=== PATIENT | female | born 1965 | race Caucasian/White ===

== ENCOUNTER 2017-02-19 11:23 | Observation (INO) | payer BC ==
[2017-02-19] MEDS ORDERED: ALBUTEROL SO4 2.5/IPRATROPIUM 0.5 INH SOL 3 ML VIAL.NEB. NEB ONE ×2 (12:20→12:42)
[2017-02-19] MEDS ORDERED: methylPREDNISolone NA SUCC 125 MG/2 ML VIAL IVPB ONE (12:21)
[2017-02-19 12:29] LABS: URINE APPEARANCE Clear; URINE BILIRUBIN Negative (NEGATIVE); URINE GLUCOSE (UA) Negative (NEGATIVE); URINE KETONE Negative (NEGATIVE); URINE NITRITE Negative (NEGATIVE); URINE UROBILINOGEN 0.2 (0.2-1.0)
--- NOTE | 2017-02-19 12:30 | PDOC ---
History of Present Illness <Chico Joseph - Last Filed: 02/19/17 15:15> - General History Source: Patient (Patient sent to ER by her PMD , Dr Sosa Menard because of exacerbation of COPD, intractable cough) - History of Present Illness Timing/Duration: 1 week, getting worse Severity: moderate <BrtethernandezhannahJoanneus France - Last Filed: 02/19/17 15:51> - General Chief Complaint: Respiratory Stated Complaint: COUGH & SOB Time Seen by Provider: 02/19/17 11:27 Past History <Chico Joseph - Last Filed: 02/19/17 15:15> - Travel Traveled outside of the country in the last 30 days: No Close contact w/someone who was outside of country & ill: No - Past Medical History Asthma: Yes (BRONCHITIS RELATED) COPD: No Diabetes: Yes GI Disorders: Yes (GERD) HTN: Yes Hypercholesterolemia: Yes Other medical history: SLEEP APNEA - Surgical History Cholecystectomy: Yes - Suicide/Smoking/Psychosocial Hx Smoking History: Never smoked Hx Alcohol Use: No Drug/Substance Use Hx: No Substance Use Type: None <BretthernandezhannahJoanneus [place] - Last Filed: 02/19/17 15:51> - Past Medical History Allergies/Adverse Reactions: Allergies Allergy/AdvReac Type Severity Reaction Status Date / Time mussels Allergy Unknown Verified 02/19/17 11:28 Penicillins Allergy Unknown Verified 02/19/17 11:28 Home Medications: Ambulatory Orders Atenolol [Tenormin] 50 mg PO DAILY 02/19/17 Atorvastatin Ca [Lipitor] 20 mg PO DAILY 02/19/17 Fluticasone Propionate [Flovent Diskus] 250 mcg IH DAILY 02/19/17 Insulin Glargine,Hum.rec.anlog [Lantus Solostar PEN (NF)] 40 units SQ HS Insulin Sliding Scale [Novolog Vial Sliding Scale -] 40 units SQ TIDAC 02/19/17 Losartan Potassium [Cozaar] 25 mg PO DAILY 02/19/17 Pantoprazole Sodium [Protonix -] 40 mg PO DAILY 02/19/17 Review of Systems - Review of Systems Able to Perform ROS?: Yes Is the patient limited Pashto proficient: Yes Constitutional: Yes: Weakness HEENTM: Yes: See HPI Respiratory: Yes: See HPI, Cough, SOB at Rest Musculoskeletal: Yes: Muscle Pain Integumentary: Yes: Symptoms Reported All Other Systems: Reviewed and Negative <Yosef Hernandez - Last Filed: 02/19/17 15:51> *Physical Exam - Vital Signs Last Vital Signs Temp Pulse Resp BP Pulse Ox 98.5 F 77 18 167/90 97 02/19/17 11:25 02/19/17 11:25 02/19/17 11:25 02/19/17 11:25 02/19/17 11:25 <Chico Joseph - Last Filed: 02/19/17 15:15> - Vital Signs Last Vital Signs Temp Pulse Resp BP Pulse Ox 98.5 F 77 18 167/90 97 02/19/17 11:25 02/19/17 11:25 02/19/17 11:25 02/19/17 11:25 02/19/17 11:25 - Physical Exam General Appearance: Yes: Nourished, Moderate Distress, Obese HEENT: positive: RADHA, Normal ENT Inspection Neck: positive: Trachea midline, Normal Thyroid, Supple Respiratory/Chest: positive: Decreased Breath Sounds, Hyperresonant Cardiovascular: positive: Regular Rate, S1, S2 Lymphatic: negative: Adenopathy Extremity: positive: Normal Capillary Refill, Pedal Edema Neurologic: positive: Fully Oriented, Alert <Yosef Hernandez - Last Filed: 02/19/17 15:51> ED Treatment Course - LABORATORY CBC & Chemistry Diagram: 02/19/17 13:05 02/19/17 13:05 - ADDITIONAL ORDERS Additional order review: Laboratory Results 02/19/17 12:15 Urine Color Yellow Urine Appearance Clear Urine pH 7.0 Ur Specific [place] 1.010 Urine Protein 1+ H Urine Glucose (UA) Negative Urine Ketones Negative Urine Blood 1+ H Urine Nitrite Negative Urine Bilirubin Negative Urine Urobilinogen 0.2 Ur Leukocyte Esterase 1+ H Urine RBC 3-5 Urine WBC 3-5 Ur Epithelial Cells Few Urine Bacteria Moderate Hyaline Casts 3-5 Urine HCG, Qual Negative 02/19/17 13:05 RBC 5.39 H MCV 84.4 MCHC 34.2 RDW 12.4 MPV 8.3 Neutrophils % 58.8 Lymphocytes % 32.3 Monocytes % 6.6 Eosinophils % 2.0 Basophils % 0.3 - Medications Given in the ED: ED Medications Discontinued Medications Generic Name Dose Route Start Last Admin Trade Name Nader PRN Reason Stop Dose Admin Albuterol/Ipratropium 1 amp 02/19/17 12:20 02/19/17 13:10 Duoneb - NEB 02/19/17 12:21 1 amp ONCE ONE Administration Methylprednisolone Sodium Succinate 125 mg 02/19/17 12:21 02/19/17 13:10 Solu-Medrol - IVPB 02/19/17 12:22 125 mg ONCE ONE Administration <Chico Joseph - Last Filed: 02/19/17 15:15> - LABORATORY CBC & Chemistry Diagram: 02/19/17 13:05 02/19/17 13:05 <Yosef Hernandez - Last Filed: 02/19/17 15:51> Medical Decision Making - Medical Decision Making 02/19/17 15:[address] Menard @15:15pm. Second page, first page done by RN. Awaiting call back. <Chico Joseph - Last Filed: 02/19/17 15:15> - Medical Decision Making 02/19/17 15:[address] Menard <Yosef Hernandez S - Last Filed: 02/19/17 15:51> *DC/Admit/Observation/Transfer <Chico Joseph - Last Filed: 02/19/17 15:15> - Discharge Dispostion Admit: Yes <Yosef Hernandez S - Last Filed: 02/19/17 15:51> Diagnosis at time of Disposition: COPD exacerbation Diabetes Qualifiers: Diabetes mellitus type: type 2 Diabetes mellitus complication status: with unspecified complications - Discharge Dispostion Condition at time of disposition: Poor - Referrals Referrals: Sosa Menard MD [Primary Care Provider] - - Patient Instructions - Post Discharge Activity
[2017-02-19 12:31] LABS: URINE BACTERIA MODERATE /hpf (NEGATIVE); URINE BLOOD 1+ (NEGATIVE); URINE COLOR YELLOW; URINE LEUK ESTERASE 1+ (NEGATIVE); URINE PROTEIN 1+ (NEGATIVE)
[2017-02-19] MEDS ORDERED: methylPREDNISolone NA SUCC 125 MG/2 ML VIAL ONE (12:43)
[2017-02-19 13:18] LABS: BASOPHIL 0.3 % (0-2.0); MCH 28.9 pg (25.7-33.7); MCHC 34.2 g/dl (32.0-36.0); MEAN CELL VOLUME 84.4 fl (80-96); NEUTROPHILS 58.8 % (42.8-82.8); RDW 12.4 % (11.6-15.6); WHITE BLOOD COUNT 9.3 K/mm3 (4.0-10.8)
[2017-02-19 13:25] LABS: MEAN PLT VOLUME 8.3 fl (7.5-11.1); PLATELET COUNT 255 K/MM3 (134-434)
[2017-02-19 15:50] LABS: ALBUMIN 3.8 g/dl (3.4-5.0); ANION GAP 10 (8-16); BILIRUBIN,TOTAL 0.6 mg/dL (0.2-1.0); CALCIUM 9.7 mg/dL (8.5-10.1); CO2 31 mmol/L (21-32); CREATININE 0.7 mg/dL (0.55-1.02); GLUCOSE,RANDOM 104 mg/dL (74-106); SGOT/AST 49 U/L (15-37); SGPT/ALT 187 U/L (12-78); TOT PROT 7.2 g/dl (6.4-8.2)
[2017-02-19 15:51] LABS: ALK PHOS 246 U/L (45-117)
[2017-02-19 19:01] VITALS: BMI 44.6
--- NOTE | 2017-02-19 20:59 | HP ---
Admitting History and Physical - Admission Chief Complaint: Cough History of Present Illness: This is a 52 y/o woman with a PMHx of: Asthma, HTN, DM, GERD, Sleep Apnea (no CPAP). Who was sent in by her [employer] for admission Asthma Exacerbation, Intractable Cough. Patient reports having a cough since [place], which was productive up until last week. Patient reports recent admission x2 for Asthma Exacerbation d/cd 02/07. Patient denies fever, chills, SOB, CP, AP, N/V/D, constipation. Patient denies exposure to pets/animal dander. History Source: Patient Limitations to Obtaining History: No Limitations - Past Medical History Cardiovascular: Yes: HTN Pulmonary: Yes: Asthma, Bronchitis, Sleep Apnea (no CPAP) Gastrointestinal: Yes: GERD ...LMP Comment: 2 YEARS AGO ...: No Endocrine: Yes: Diabetes Mellitus - Past Surgical History Past Surgical History: Yes: Cholecystectomy, Joint Replacement (right), Laminectomy (cervical) - Advance Directives Advance Directives: Yes: Health Care Proxy - Smoking History Smoking history: Never smoked Have you smoked in the past 12 months: No - Alcohol/Substance Use Hx Alcohol Use: No History of Substance Use: reports: None - Social History Usual Living Arrangement: Yes: With Spouse ADL: Independent 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 History of Recent Travel: No Home Medications - Allergies Allergies/Adverse Reactions: Allergies Allergy/AdvReac Type Severity Reaction Status Date / Time mussels Allergy Unknown Verified 02/19/17 11:28 Penicillins Allergy Unknown Verified 02/19/17 11:28 - Home Medications Home Medications: Ambulatory Orders Atenolol [Tenormin] 50 mg PO DAILY 02/19/17 Atorvastatin Ca [Lipitor] 20 mg PO DAILY 02/19/17 Fluticasone Propionate [Flovent Diskus] 250 mcg IH DAILY 02/19/17 Insulin Glargine,Hum.rec.anlog [Lantus Solostar PEN (NF)] 40 units SQ HS Insulin Sliding Scale [Novolog Vial Sliding Scale -] 40 units SQ TIDAC 02/19/17 Losartan Potassium [Cozaar] 25 mg PO DAILY 02/19/17 Pantoprazole Sodium [Protonix -] 40 mg PO DAILY 02/19/17 Family Disease History - Family Disease History Family Disease History: Diabetes: Grandparent, Heart Disease: Father (HTN), Mother (HTN) Review of Systems - Review of Systems Constitutional: reports: No Symptoms HENT: reports: No Symptoms Neck: reports: No Symptoms Cardiovascular: reports: No Symptoms Respiratory: reports: Cough, Wheezing Gastrointestinal: reports: No Symptoms Genitourinary: reports: No Symptoms Breasts: reports: No Symptoms Reported Musculoskeletal: reports: No Symptoms Integumentary: reports: No Symptoms Neurological: reports: No Symptoms Endocrine: reports: No Symptoms Hematology/Lymphatic: reports: No Symptoms Psychiatric: reports: No Symptoms Physical Examination Vital Signs: Vital Signs Temperature 97.5 F L 02/19/17 18:43 Pulse Rate 92 H 02/19/17 18:43 Respiratory Rate 20 02/19/17 20:09 Blood Pressure 189/97 02/19/17 18:43 O2 Sat by Pulse Oximetry (%) 97 02/19/17 11:25 Constitutional: Yes: Well Nourished, No Distress, Obese Eyes: Yes: WNL, Conjunctiva Clear, EOM Intact, PERRL HENT: Yes: WNL, Atraumatic, Normocephalic Neck: Yes: WNL, Supple, Trachea Midline Cardiovascular: Yes: WNL, Regular Rate and Rhythm, S1, S2 Respiratory: Yes: Cough, Diminished Gastrointestinal: Yes: Normal Bowel Sounds, Soft, Abdomen, Obese Renal/: Yes: WNL Breast(s): Yes: WNL Musculoskeletal: Yes: WNL Extremities: Yes: WNL Edema: Yes Edema: LLE: 2+, RLE: 2+ Peripheral Pulses WNL: Yes Integumentary: Yes: WNL Neurological: Yes: WNL, Alert, Oriented, Cran Nerves II-XII Intact ...Motor Strength: WNL Psychiatric: Yes: WNL Labs: CBC, BMP 02/19/17 13:05 02/19/17 13:05 Intake & Output 02/17/17 02/18/17 02/19/17 02/20/17 23:59 23:59 23:59 23:59 Intake Total 400 Balance 400 Weight 110.677 kg Imaging - Results Chest X-ray: Report Reviewed EKG: Image Reviewed Problem List - Problems (1) Asthma exacerbation Code(s): J45.901 - UNSPECIFIED ASTHMA WITH (ACUTE) EXACERBATION (2) Bronchitis Code(s): J40 - BRONCHITIS, NOT SPECIFIED ACUTE OR CHRONIC (3) Cough present for greater than 3 weeks Code(s): R05 - COUGH (4) Severe obesity (BMI >= 40) Code(s): E66.01 - MORBID (SEVERE) OBESITY DUE TO EXCESS CALORIES (5) HTN (hypertension) Code(s): I10 - ESSENTIAL (PRIMARY) HYPERTENSION (6) Elevated LFTs Code(s): R79.89 - OTHER SPECIFIED ABNORMAL FINDINGS OF BLOOD CHEMISTRY (7) GERD (gastroesophageal reflux disease) Code(s): K21.9 - GASTRO-ESOPHAGEAL REFLUX DISEASE WITHOUT ESOPHAGITIS (8) DVT prophylaxis Code(s): [id number] - Assessment/Plan This is a 52 y/o woman with a PMHx of: Asthma, HTN, DM, GERD, Sleep Apnea. Placed on Observation with Asthma Exacerbation, Cough. Plan: 1. Asthma Exacerbation - Duonebs - Solumederol with taper - Peakflow - Appreciate Pulm Consult - Chest Xray reviewed- neg infiltrate, effusion, vascular congestion - Monitor vitals 2. Cough - Likely due to upper airway syndrome vs gastroesphogeal reflux vs chronic bronchitis - PPI - Guaifenesin DM prn - Duonebs 3. Diabetes Mellitus - Not controlled possibly due to recent steroid use - BGMs - ISS - Continue Levemir - HgBA1C 8.9 - f/u with endocrinology outpatient for further management 4. Severe Obesity - Sub Optimal - Low Calorie Diet - Consider RD Consult 5. Hypertension - Not Controlled - Continue home med - Monitor renal function 6. Transaminitis - 49/187/246 - Will avoid Hepotoxic Drugs - Continue to monitor and treat accordingly 7. GERD - Continue home med 8. Sleep Apnea - no CPAP use 9. FEN - PO Fluids - Replete lytes prn - Diabetic, Low Na, Low Cholesterol Diet 10. DVT Prophylaxis - OOB - SCDs Code Status: Full Code Dispo: Observation Visit type - Emergency Visit Emergency Visit: Yes ED Registration Date: 02/19/17 Care time: The patient presented to the Emergency Department on the above date and was hospitalized for further evaluation of their emergent condition. - New Patient This patient is new to me today: Yes Date on this admission: 02/19/17 - Critical Care Critical Care patient: No
[2017-02-19] MEDS ORDERED: ALBUTEROL SO4 2.5/IPRATROPIUM 0.5 INH SOL 3 ML VIAL.NEB. NEB PRN (21:09)
[2017-02-19] MEDS ORDERED: INSULIN (NOVOLOG) ASPART 100 UNITS/ML 10ML VIAL ONE (23:33)
[2017-02-20] MEDS ORDERED: guaiFENesin/D-METHORPHAN HB 10 ML UNIT-DOSE CUPS PO PRN (00:57)
[2017-02-20] MEDS: INSULIN SLIDING SCALE (NOVOLOG) 1 VIAL SQ SCH ×3 (06:48→21:56)
[2017-02-20 09:22] LABS: BASOPHIL 0.1 % (0-2.0); MCH 29.6 pg (25.7-33.7); MCHC 34.8 g/dl (32.0-36.0); MEAN CELL VOLUME 85.1 fl (80-96); MEAN PLT VOLUME 8.8 fl (7.5-11.1); NEUTROPHILS 76.6 % (42.8-82.8); PLATELET COUNT 241 K/MM3 (134-434); RDW 12.1 % (11.6-15.6); WHITE BLOOD COUNT 8.8 K/mm3 (4.0-10.8)
[2017-02-20] MEDS: PANTOPRAZOLE 40 MG TABLET (FP) PO SCH (09:25)
[2017-02-20] MEDS: ATENOLOL 50 MG TABLET (FP) PO SCH (09:25)
[2017-02-20] MEDS: LOSARTAN POTASSIUM 25 MG TABLET PO SCH (09:25)
[2017-02-20 09:44] LABS: ANION GAP 11 (8-16); CALCIUM 9.4 mg/dl (8.4-10.2); CO2 24 mmol/L (22-28); CREATININE 0.7 mg/dl (0.6-1.3); GLUCOSE,RANDOM 290 mg/dl (74-106)
--- NOTE | 2017-02-20 10:17 | PN ---
Physical Exam: SUBJECTIVE: Patient seen and examined, sitting in bed, talking on cell phone denies any chest pain or shortness of breath, reports persistent cough. OBJECTIVE: 52 y/o woman with a PMHx of: Asthma, HTN, DM, GERD, Sleep Apnea (no CPAP). admitted for emergent condition. Vital Signs Period Temp Pulse Resp BP Sys/Dooley Pulse Ox Last 24 Hr 97.5 F-98.5 F 77-102 18-20 144-189/73-97 94-97 GENERAL: obese, patient is awake, alert, and fully oriented, in no acute distress. HEAD: Normal with no signs of trauma. EYES: PERRL, extraocular movements intact, sclera anicteric, conjunctiva clear. No ptosis. ENT: Ears normal, nares patent, oropharynx clear without exudates, moist mucous membranes. post nasal drip noted NECK: Trachea midline, full range of motion, supple. LUNGS: Breath sounds equal, clear to auscultation bilaterally, no wheezes, no crackles, no accessory muscle use. speaking in full sentences HEART: Regular rate and rhythm, S1, S2 without murmur, rub or gallop. ABDOMEN: Soft, nontender, nondistended, normoactive bowel sounds, no guarding, no rebound, no hepatosplenomegaly, no masses. EXTREMITIES: 2+ pulses, warm, well-perfused, no edema. NEUROLOGICAL: Cranial nerves II through XII grossly intact. Normal speech, gait not observed. PSYCH: Normal mood, normal affect. SKIN: Warm, dry, normal turgor, no rashes or lesions noted Laboratory Results - last 24 hr 02/19/17 02/19/17 02/19/17 12:15 13:05 13:05 WBC 9.3 RBC 5.39 H Hgb 15.6 H Hct 45.4 H MCV 84.4 MCH 28.9 MCHC 34.2 RDW 12.4 Plt Count 255 MPV 8.3 Neutrophils % 58.8 Lymphocytes % 32.3 Monocytes % 6.6 Eosinophils % 2.0 Basophils % 0.3 Sodium 141 Potassium 3.9 Chloride 100 Carbon Dioxide 31 Anion Gap 10 BUN 9 Creatinine 0.7 Creat Clearance w eGFR > 60 POC Glucometer Random Glucose 104 Hemoglobin A1c % Calcium 9.7 Total Bilirubin 0.6 AST 49 H ALT 187 H Alkaline Phosphatase 246 H Total Protein 7.2 Albumin 3.8 Urine Color Yellow Urine Appearance Clear Urine pH 7.0 Ur Specific [place] 1.010 Urine Protein 1+ H Urine Glucose (UA) Negative Urine Ketones Negative Urine Blood 1+ H Urine Nitrite Negative Urine Bilirubin Negative Urine Urobilinogen 0.2 Ur Leukocyte Esterase 1+ H Urine RBC 3-5 Urine WBC 3-5 Ur Epithelial Cells Few Urine Bacteria Moderate Hyaline Casts 3-5 Urine HCG, Qual Negative 02/19/17 02/19/17 02/20/17 13:05 21:37 06:00 WBC RBC Hgb Hct MCV MCH MCHC RDW Plt Count MPV Neutrophils % Lymphocytes % Monocytes % Eosinophils % Basophils % Sodium Potassium Chloride Carbon Dioxide Anion Gap BUN Creatinine Creat Clearance w eGFR POC Glucometer 391 417 Random Glucose Hemoglobin A1c % 8.9 H Calcium Total Bilirubin AST ALT Alkaline Phosphatase Total Protein Albumin Urine Color Urine Appearance Urine pH Ur Specific [place] Urine Protein Urine Glucose (UA) Urine Ketones Urine Blood Urine Nitrite Urine Bilirubin Urine Urobilinogen Ur Leukocyte Esterase Urine RBC Urine WBC Ur Epithelial Cells Urine Bacteria Hyaline Casts Urine HCG, Qual 02/20/17 02/20/17 07:30 07:30 WBC 8.8 RBC 5.00 Hgb 14.8 Hct 42.6 MCV 85.1 MCH 29.6 MCHC 34.8 RDW 12.1 Plt Count 241 MPV 8.8 Neutrophils % 76.6 D Lymphocytes % 17.6 D Monocytes % 5.7 Eosinophils % 0.0 D Basophils % 0.1 Sodium 135 L Potassium 3.9 Chloride 100 Carbon Dioxide 24 Anion Gap 11 BUN 15 Creatinine 0.7 Creat Clearance w eGFR POC Glucometer Random Glucose 290 H Hemoglobin A1c % Calcium 9.4 Total Bilirubin AST ALT Alkaline Phosphatase Total Protein Albumin Urine Color Urine Appearance Urine pH Ur Specific [place] Urine Protein Urine Glucose (UA) Urine Ketones Urine Blood Urine Nitrite Urine Bilirubin Urine Urobilinogen Ur Leukocyte Esterase Urine RBC Urine WBC Ur Epithelial Cells Urine Bacteria Hyaline Casts Urine HCG, Qual Active Medications Generic Name Dose Route Start Last Admin Trade Name Freq PRN Reason Stop Dose Admin Albuterol/Ipratropium 1 amp 02/19/17 21:09 Duoneb - NEB Q4H PRN SHORTNESS OF BREATH Atenolol 50 mg 02/20/17 10:00 02/20/17 09:25 Tenormin - PO 50 mg DAILY MYLA Administration Atorvastatin Calcium 20 mg 02/20/17 22:00 Lipitor - PO HS MYLA Azithromycin 250 mg 02/21/17 10:00 Zithromax - PO 02/24/17 10:01 DAILY MYAL Budesonide/Formoterol Fumarate 2 puff 02/20/17 12:00 02/20/17 12:00 Symbicort 160/4.5mcg - IH 2 inh BID MYLA Administration Fluticasone Propionate 2 spray 02/20/17 13:15 Flonase - NS DAILY MYLA Guaifenesin 10 ml 02/20/17 00:57 Robitussin Dm - PO Q6H PRN COUGH Insulin Aspart 1 vial 02/20/17 07:00 02/20/17 11:47 Novolog Vial Sliding Scale - SQ 10 units ACHS MYLA Administration Protocol Insulin Detemir 40 units 02/20/17 22:00 Levemir Vial SQ HS MYLA Loratadine 10 mg 02/20/17 13:15 Claritin - PO DAILY MYLA Losartan Potassium 25 mg 02/20/17 10:00 02/20/17 09:25 Cozaar - PO 25 mg DAILY MYLA Administration Methylprednisolone Sodium Succinate 40 mg 02/20/17 11:45 02/20/17 11:52 Solu-Medrol - IVPUSH 40 mg Q6H-IV MYLA Administration Pantoprazole Sodium 40 mg 02/20/17 10:00 02/20/17 09:25 Protonix - PO 40 mg DAILY MYLA Administration IMAGING chest xray: no acute pathology ASSESSMENT/PLAN: 1. 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 bronchospasm - Likely due to upper airway syndrome vs gastroesphogeal reflux vs postnasal drip - continue ppi, start flonase and claritin 2. endo iddm (uncontrolled) - continue home dose levermir, fingersticks achs 3. cardiovascular Hypertension - continue atenolol and cozaar - b/p at goal 4. gi transanimiits - benign abd exam, close monitoring, lipid profile ordere GERD - Continue ppi FEN - PO Fluids - Replete lytes prn - Diabetic, Low Na, Low Cholesterol Diet DVT Prophylaxis - OOB - SCDs Code Status: Full Code Dispo: Observation Visit type - Emergency Visit Emergency Visit: Yes ED Registration Date: 02/19/17 Care time: The patient presented to the Emergency Department on the above date and was hospitalized for further evaluation of their emergent condition. - New Patient This patient is new to me today: No - Critical Care Critical Care patient: No - Discharge Referral Referred to [facility] No
--- NOTE | 2017-02-20 11:31 | PN ---
Progress Note (short form) - Note Progress Note: PULMONARY CONSULTATION DICTATED 02/20/17 IMP ? ASTHMA EXACERBATION COUGH ? ASTHMA,?LARYNGEAL/PHARYNGEAL REFLUX R/O INFECTIOUS ?PERTUSSIS OSAS IDDM HTN MORBID OBESITY ELEVATED LFTS PLAN STEROIDS INHALED BRONCHODILATORS ABX PROTONIX CHEST CT MONITOR LFTS DR MCGINNIS Problem List - Problems (1) Elevated LFTs Code(s): R79.89 - OTHER SPECIFIED ABNORMAL FINDINGS OF BLOOD CHEMISTRY (2) Asthma exacerbation Code(s): J45.901 - UNSPECIFIED ASTHMA WITH (ACUTE) EXACERBATION (3) Bronchitis Code(s): J40 - BRONCHITIS, NOT SPECIFIED ACUTE OR CHRONIC (4) Diabetes Code(s): E11.9 - TYPE 2 DIABETES MELLITUS WITHOUT COMPLICATIONS Qualifiers: Diabetes mellitus type: type 2 Diabetes mellitus complication status: with unspecified complications (5) GERD (gastroesophageal reflux disease) Code(s): K21.9 - GASTRO-ESOPHAGEAL REFLUX DISEASE WITHOUT ESOPHAGITIS (6) HTN (hypertension) Code(s): I10 - ESSENTIAL (PRIMARY) HYPERTENSION (7) Morbid obesity Code(s): E66.01 - MORBID (SEVERE) OBESITY DUE TO EXCESS CALORIES
[2017-02-20] MEDS ORDERED: PT OWN MED DRAWER 7, Y5N ONE ×2 (11:50→14:05)
[2017-02-20] MEDS: BUDESONIDE/FORMETEROL FUMARATE 160/4.5 mcg INHALER IH SCH ×3 (11:52→21:49)
[2017-02-20] MEDS: methylPREDNISolone NA SUCC 40 MG/1 ML VIAL IVPUSH SCH ×3 (11:52→21:06)
[2017-02-20] MEDS ORDERED: AZITHROMYCIN 250 MG TABLET PO ONE (12:00)
--- NOTE | 2017-02-20 12:45 | EKG ---
Test Reason : Blood Pressure : / mmHG Vent. Rate : 083 BPM Atrial Rate : 083 BPM P-R Int : 148 ms QRS Dur : 082 ms QT Int : 390 ms P-R-T Axes : 029 -22 026 degrees QTc Int : 458 ms SINUS RHYTHM POOR R WAVE PROGRESSION NONSPECIFIC T WAVE ABNORMALITY NO PREVIOUS ECGS AVAILABLE Confirmed by ROXANNE BELTRAN MD ([id number]) on 02/20/2017 12:45:30 PM Referred By: MD SABILLON Confirmed By:ROXANNE BELTRAN MD
[2017-02-20] MEDS ORDERED: REFRIGERATED ANITBIOTICS ONE ×3 (14:55→21:34)
[2017-02-20] MEDS: LORATADINE 10 MG TABLET PO SCH (14:59)
[2017-02-20] MEDS: FLUTICASONE PROP 0.05% 16 GM NASAL SPRAY NS SCH (14:59)
[2017-02-20] MEDS ORDERED: INSULIN DETEMIR 100 UNITS/ML MDV SQ SCH (22:00)
[2017-02-20] MEDS ORDERED: ATORVASTATIN CA 20 MG TABLET (FP) PO SCH (22:00)
[2017-02-21] MEDS: methylPREDNISolone NA SUCC 40 MG/1 ML VIAL IVPUSH SCH (03:18)
[2017-02-21] MEDS ORDERED: REFRIGERATED ANITBIOTICS ONE ×4 (06:13→15:12)
--- NOTE | 2017-02-21 07:44 | PN ---
Progress Note, Physician History of Present Illness: PULMONARY ALERT,LESS DYSPNEIC,LESS COUGH - Current Medication List Current Medications: Active Medications Albuterol/Ipratropium (Duoneb -) 1 amp NEB Q4H PRN PRN Reason: SHORTNESS OF BREATH Atenolol (Tenormin -) 50 mg PO DAILY [facility] Last Admin: 02/20/17 09:25 Dose: 50 mg Atorvastatin Calcium (Lipitor -) 20 mg PO HS [facility] Last Admin: 02/20/17 21:49 Dose: 20 mg Azithromycin (Zithromax -) 250 mg PO DAILY [facility] Stop: 02/24/17 10:01 Budesonide/Formoterol Fumarate (Symbicort 160/4.5mcg -) 2 puff IH BID [facility] Last Admin: 02/20/17 21:49 Dose: 2 inh Fluticasone Propionate (Flonase -) 2 spray NS DAILY [facility] Last Admin: 02/20/17 14:59 Dose: 2 spray Guaifenesin (Robitussin Dm -) 10 ml PO Q6H PRN PRN Reason: COUGH Insulin Aspart (Novolog Vial Sliding Scale -) 1 vial SQ ACHS [facility] PRN Reason: Protocol Last Admin: 02/20/17 21:56 Dose: 10 units Insulin Detemir (Levemir Vial) 40 units SQ HS [facility] Last Admin: 02/20/17 22:50 Dose: 40 units Loratadine (Claritin -) 10 mg PO DAILY [facility] Last Admin: 02/20/17 14:59 Dose: 10 mg Losartan Potassium (Cozaar -) 25 mg PO DAILY [facility] Last Admin: 02/20/17 09:25 Dose: 25 mg Methylprednisolone Sodium Succinate (Solu-Medrol -) 40 mg IVPUSH Q6H-IV [facility] Last Admin: 02/21/17 03:18 Dose: 40 mg Pantoprazole Sodium (Protonix -) 40 mg PO DAILY [facility] Last Admin: 02/20/17 09:25 Dose: 40 mg - Objective Vital Signs: Vital Signs Temperature 97.7 F 02/21/17 06:00 Pulse Rate 72 02/21/17 06:00 Respiratory Rate 19 02/21/17 06:00 Blood Pressure 132/72 02/21/17 06:00 O2 Sat by Pulse Oximetry (%) 96 02/20/17 22:13 Constitutional: Yes: Calm, Obese Eyes: Yes: WNL HENT: Yes: WNL Neck: Yes: WNL Cardiovascular: Yes: Regular Rate and Rhythm, S1, S2 Respiratory: Yes: Diminished Gastrointestinal: Yes: Normal Bowel Sounds, Soft Extremities: Yes: WNL Edema: No Problem List - Problems (1) Elevated LFTs Code(s): R79.89 - OTHER SPECIFIED ABNORMAL FINDINGS OF BLOOD CHEMISTRY (2) Asthma exacerbation Code(s): J45.901 - UNSPECIFIED ASTHMA WITH (ACUTE) EXACERBATION (3) Bronchitis Code(s): J40 - BRONCHITIS, NOT SPECIFIED ACUTE OR CHRONIC (4) Diabetes Code(s): E11.9 - TYPE 2 DIABETES MELLITUS WITHOUT COMPLICATIONS Qualifiers: Diabetes mellitus type: type 2 Diabetes mellitus complication status: with unspecified complications (5) GERD (gastroesophageal reflux disease) Code(s): K21.9 - GASTRO-ESOPHAGEAL REFLUX DISEASE WITHOUT ESOPHAGITIS (6) HTN (hypertension) Code(s): I10 - ESSENTIAL (PRIMARY) HYPERTENSION (7) Morbid obesity Code(s): E66.01 - MORBID (SEVERE) OBESITY DUE TO EXCESS CALORIES Assessment/Plan IMP ? ASTHMA EXACERBATION COUGH ? ASTHMA,?LARYNGEAL/PHARYNGEAL REFLUX R/O INFECTIOUS ?PERTUSSIS OSAS IDDM HTN MORBID OBESITY ELEVATED LFTS PLAN STEROIDS INHALED BRONCHODILATORS ABX PROTONIX MONITOR LFTS CARDIOLOGY RICHARD MCGINNIS Problem List - Problems (1) Elevated LFTs Code(s): R79.89 - OTHER SPECIFIED ABNORMAL FINDINGS OF BLOOD CHEMISTRY (2) Asthma exacerbation Code(s): J45.901 - UNSPECIFIED ASTHMA WITH (ACUTE) EXACERBATION (3) Bronchitis Code(s): J40 - BRONCHITIS, NOT SPECIFIED ACUTE OR CHRONIC (4) Diabetes Code(s): E11.9 - TYPE 2 DIABETES MELLITUS WITHOUT COMPLICATIONS Qualifiers: Diabetes mellitus type: type 2 Diabetes mellitus complication status: with unspecified complications (5) GERD (gastroesophageal reflux disease) Code(s): K21.9 - GASTRO-ESOPHAGEAL REFLUX DISEASE WITHOUT ESOPHAGITIS (6) HTN (hypertension) Code(s): I10 - ESSENTIAL (PRIMARY) HYPERTENSION (7) Morbid obesity Code(s): E66.01 - MORBID (SEVERE) OBESITY DUE TO EXCESS CALORIES
[2017-02-21 08:38] LABS: ALBUMIN 3.9 g/dl (3.5-5.0); ALK PHOS 181 U/L (32-92); ANION GAP 12 (8-16); BILIRUBIN,TOTAL 0.6 mg/dl (0.2-1.0); CO2 25 mmol/L (22-28); CREATININE 0.8 mg/dl (0.6-1.3); MAGNESIUM 1.9 mg/dL (1.8-2.4); PHOSPHOROUS 4.2 mg/dl (2.5-4.6); SGOT/AST 35 U/L (10-42); SGPT/ALT 104 U/L (10-40); TOT PROT 7.2 g/dl (6.4-8.3)
[2017-02-21 08:44] LABS: GLUCOSE,RANDOM 308 mg/dl (74-106)
[2017-02-21 09:01] LABS: BASOPHIL 0.1 % (0-2.0); EOSINOPHIL 0.1 % (0-4.5); MCHC 34.9 g/dl (32.0-36.0); MEAN PLT VOLUME 9.1 fl (7.5-11.1); NEUTROPHILS 85.6 % (42.8-82.8); PLATELET COUNT 254 K/MM3 (134-434); RDW 12.3 % (11.6-15.6); WHITE BLOOD COUNT 10.9 K/mm3 (4.0-10.8)
[2017-02-21] MEDS ORDERED: PT OWN MED DRAWER 7, Y5N ONE (09:07)
[2017-02-21] MEDS: BUDESONIDE/FORMETEROL FUMARATE 160/4.5 mcg INHALER IH SCH (09:15)
[2017-02-21] MEDS: LOSARTAN POTASSIUM 25 MG TABLET PO SCH (09:15)
[2017-02-21] MEDS: PANTOPRAZOLE 40 MG TABLET (FP) PO SCH (09:15)
[2017-02-21] MEDS: LORATADINE 10 MG TABLET PO SCH (09:15)
[2017-02-21] MEDS: ATENOLOL 50 MG TABLET (FP) PO SCH (09:15)
[2017-02-21 09:18] LABS: CHOLESTEROL 224 mg/dl
[2017-02-21] MEDS: FLUTICASONE PROP 0.05% 16 GM NASAL SPRAY NS SCH (09:52)
[2017-02-21] MEDS ORDERED: AZITHROMYCIN 250 MG TABLET PO SCH ×2 (10:00)
[2017-02-21] MEDS ORDERED: methylPREDNISolone NA SUCC 40 MG/1 ML VIAL IVPUSH SCH (10:00)
--- NOTE | 2017-02-21 11:06 | CONS ---
PULMONARY CONSULTATION DATE OF CONSULTATION: 02/20/2017 REFERRING PHYSICIAN: Selena Gray NP HISTORY OF PRESENT ILLNESS: The patient is a 52-year-old white female with past medical history of asthma; hypertension; GERD; sleep apnea, not on CPAP; diabetes, who was admitted to [facility] secondary to asthma exacerbation and intractable cough. Patient states she has had a cough since . She had 2 admissions at [facility] for exacerbation, most recently February 07; from which, she was discharged. She apparently was discharged home on steroids. She went to see her regional office coordinator yesterday with the above symptoms, again advised to go to the hospital for further therapy. She states that she had a fever a couple of days. Denies any chest pains or palpitations. She also has a history of GERD. She went to an ENT physician 2-3 days ago. She stated she had a lot of inflammation in the back of her airway and evidence of GERD. Patient denies any chest pains, palpitations. Denies nausea, vomiting, and diaphoresis. She is a nonsmoker. There is no history of occupational exposure to chemicals or fumes. She has never been intubated. There is no history of recent travel. She states that when she was younger, she also went for allergy shots. PAST MEDICAL HISTORY: Again includes asthma, hypertension, GERD, diabetes, sleep apnea. REVIEW OF SYSTEMS: Positive for cough, positive shortness of breath. Positive fever. No chest pain. No palpitations. No hemoptysis. No abdominal pain. No weight loss. No night sweats. MEDICATIONS PRIOR TO ADMISSION: Include Tenormin, Lipitor, Flovent, insulin, Cozaar, and Protonix. PHYSICAL EXAMINATION: General: The patient is an obese female, well awake, alert, in no acute distress. Vital Signs: She is currently afebrile. Blood pressure is 144/80. Respiratory rate is 20. O2 saturation is 94% on room air. HEENT: Normocephalic, atraumatic. Neck: Supple. Heart: Regular. S1, S2. Chest: Clear. Abdomen: Soft. Bowel sounds are positive. Extremities: No signs of edema. DIAGNOSTIC DATA: Chest x-ray: No acute infiltrates and effusions. Laboratory Data: WBC is 8.8, hemoglobin 14.8, hematocrit 42.6, with a platelet count of 241,000. Sodium is 135, glucose is 290. ALT is 187, alkaline phosphatase is 246, and AST is 49. IMPRESSION: 1. Cough, dyspnea, asthma. 2. Cough secondary to laryngopharyngeal reflux. 3. Obstructive sleep apnea. 4. Elevated transaminases; etiology to be determined. 5. Morbid obesity. PLAN: Antibiotic therapy, IV steroids, inhaled steroids, continue proton pump inhibitors, PFTs as an outpatient, also monitor LFTs, also obtain CT scan of the chest to rule out underlying bronchiectasis, also antibiotics to cover possible Bordetella pertussis. INGA MCGINNIS M.D. [id number]
[2017-02-21] MEDS: INSULIN SLIDING SCALE (NOVOLOG) 1 VIAL SQ SCH (12:04)
--- NOTE | 2017-02-21 13:09 | DS ---
Physical Exam: SUBJECTIVE: Patient seen and examined, reports feeling better, less coughing, denies any chest pain or shortness of breath. OBJECTIVE:This is a 52 y/o woman with a PMHx of: Asthma, HTN, DM, GERD, Sleep Apnea (no CPAP). 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 Patient reports having a cough since Halloween , which was productive up until last week. Patient reports recent admission x2 for Asthma Exacerbation d/cd 02/07. Patient denies fever, chills, SOB, CP, AP, N/ V/D, constipation. Patient denies exposure to pets/animal dander. Vital Signs Period Temp Pulse Resp BP Sys/Dooley Pulse Ox Last 24 Hr 97.7 F-98.0 F 72-89 19-20 132-150/72-75 96-96 PHYSICAL EXAM GENERAL: obese, patient is awake, alert, and fully oriented, in no acute distress. HEAD: Normal with no signs of trauma. EYES: PERRL, extraocular movements intact, sclera anicteric, conjunctiva clear. No ptosis. ENT: Ears normal, nares patent, oropharynx clear without exudates, moist mucous membranes. post nasal drip noted NECK: Trachea midline, full range of motion, supple. LUNGS: Breath sounds equal, clear to auscultation bilaterally, no wheezes, no crackles, no accessory muscle use. speaking in full sentences HEART: Regular rate and rhythm, S1, S2 without murmur, rub or gallop. ABDOMEN: Soft, nontender, nondistended, normoactive bowel sounds, no guarding, no rebound, no hepatosplenomegaly, no masses. EXTREMITIES: 2+ pulses, warm, well-perfused, no edema. NEUROLOGICAL: Cranial nerves II through XII grossly intact. Normal speech, gait not observed. PSYCH: Normal mood, normal affect. SKIN: Warm, dry, normal turgor, no rashes or lesions noted LABS Laboratory Results - last 24 hr 02/20/17 02/20/17 02/20/17 14:50 16:07 20:28 WBC RBC Hgb Hct MCV MCH MCHC RDW Plt Count MPV Neutrophils % Lymphocytes % Monocytes % Eosinophils % Basophils % Sodium Potassium Chloride Carbon Dioxide Anion Gap BUN Creatinine Creat Clearance w eGFR POC Glucometer 438 367 393 Random Glucose Calcium Phosphorus Magnesium Total Bilirubin AST ALT Alkaline Phosphatase Total Protein Albumin Triglycerides Cholesterol Total LDL Cholesterol HDL Cholesterol 02/20/17 02/21/17 02/21/17 23:02 06:05 07:30 WBC 10.9 H RBC 5.25 H Hgb 15.8 H Hct 45.2 MCV 86.0 MCH 30.0 MCHC 34.9 RDW 12.3 Plt Count 254 MPV 9.1 Neutrophils % 85.6 H Lymphocytes % 12.3 D Monocytes % 1.9 L Eosinophils % 0.1 D Basophils % 0.1 Sodium Potassium Chloride Carbon Dioxide Anion Gap BUN Creatinine Creat Clearance w eGFR POC Glucometer 393 373 Random Glucose Calcium Phosphorus Magnesium Total Bilirubin AST ALT Alkaline Phosphatase Total Protein Albumin Triglycerides Cholesterol Total LDL Cholesterol HDL Cholesterol 02/21/17 02/21/17 02/21/17 07:30 07:45 11:46 WBC RBC Hgb Hct MCV MCH MCHC RDW Plt Count MPV Neutrophils % Lymphocytes % Monocytes % Eosinophils % Basophils % Sodium 135 L Potassium 4.3 Chloride 98 Carbon Dioxide 25 Anion Gap 12 BUN 17 Creatinine 0.8 Creat Clearance w eGFR > 60 POC Glucometer 265 Random Glucose 308 H* Calcium 10.0 Phosphorus 4.2 Magnesium 1.9 Total Bilirubin 0.6 AST 35 ALT 104 H Alkaline Phosphatase 181 H Total Protein 7.2 Albumin 3.9 Triglycerides 111 Cholesterol 224 Total LDL Cholesterol 127 HDL Cholesterol 75 IMAGING chest xray: no acute pathology ct of chest: mild pulmonary hypertension, moderate coronary calcifications, clear lungs no effusions HOSPITAL COURSE: Patient was admitted from the emergency department for Asthma Exacerbation, started on solumedrol with taper, patient was started on symbicort, case discussed with Dr Menard, patient's private maintenance truck driver, as per Dr Menard he is unavailable for consultation, consulted with Dr Smith, pulmonary. bronchospasms improved. patient has a past medical history of iddm ( uncontrolled) patient insisted on treating herself, with her home dose levermir and novolog, she declined the hospital's medication. blood pressure was at goal with home dose atenolol and cozaar. Transanimiits was noted secondary to uncontrolled hyperlipidemia, benign abd exam, close monitoring, lipid profile noted. PLAN - strict follow up with PCP, Dr Barnes for titration of cholesterol medication within 1 week - strict follow up with pulmonary within 2 weeks Date of Admission:02/19/17 Date of Discharge: 02/21/17 Minutes to complete discharge: 45 Discharge Summary Reason For Visit: DIABETES MELLITUS/BRONCHITIS EXACER Current Active Problems Asthma exacerbation (Acute) Bronchitis (Acute) COPD exacerbation (Acute) Cough present for greater than 3 weeks (Acute) DVT prophylaxis (Acute) Diabetes (Acute) Elevated LFTs (Acute) GERD (gastroesophageal reflux disease) (Acute) HTN (hypertension) (Acute) Morbid obesity (Acute) Severe obesity (BMI >= 40) (Acute) Condition: Poor - Instructions Referrals: Sosa Menard MD [Primary Care Provider] - - Home Medications Comprehensive Discharge Medication List: Ambulatory Orders Atenolol [Tenormin] 50 mg PO DAILY 02/19/17 Atorvastatin Ca [Lipitor] 20 mg PO DAILY 02/19/17 Fluticasone Propionate [Flovent Diskus] 250 mcg IH DAILY 02/19/17 Insulin Glargine,Hum.rec.anlog [Lantus Solostar PEN (NF)] 40 units SQ HS Insulin Sliding Scale [Novolog Vial Sliding Scale -] 40 units SQ TIDAC 02/19/17 Losartan Potassium [Cozaar] 25 mg PO DAILY 02/19/17 Pantoprazole Sodium [Protonix -] 40 mg PO DAILY 02/19/17 - Discharge Referral Referred to [facility] No
[2017-02-21 14:18] VITALS: BP 124/58; PULSE 90; TEMP 98.2
== END 2017-02-21 15:21 | disposition home or self-care (01) ==
LOC: FER 11:23 → FM/S 17:37
PROVIDERS: ADMIT Internal Medicine; ATTEND Nurse Practitioner Family
PROC: 3E0F7GC Introduction of Other Therapeutic Substance into Respiratory Tract, Via Natural or Artificial Opening (ICD-10-PCS; principal; 2017-02-19)
PROC: 3E0F7GC Introduction of Other Therapeutic Substance into Respiratory Tract, Via Natural or Artificial Opening (ICD-10-PCS; 2017-02-19)
PROC: 3E0333Z Introduction of Anti-inflammatory into Peripheral Vein, Percutaneous Approach (ICD-10-PCS; 2017-02-19)
DX: J45.901 Unspecified asthma with (acute) exacerbation (principal); J44.1 Chronic obstructive pulmonary disease with (acute) exacerbation; J20.9 Acute bronchitis, unspecified; I10 Essential (primary) hypertension; E11.9 Type 2 diabetes mellitus without complications; Z79.4 Long term (current) use of insulin; K21.9 Gastro-esophageal reflux disease without esophagitis; G47.33 Obstructive sleep apnea (adult) (pediatric); R79.89 Other specified abnormal findings of blood chemistry; E66.01 Morbid (severe) obesity due to excess calories; Z68.41 Body mass index [BMI] 40.0-44.9, adult
CPT/HCPCS: 36415; 71020-TC; 71250-TC; 80048; 80053; 80061; 81003; 81015; 83036; 83735; 84100; 84703; 85025; 93005; 99282-25; G0378